=== PATIENT | female | born 1990 | race Caucasian/White ===

== ENCOUNTER 2016-06-23 19:18 | Emergency (ER) | payer OTHER ==
--- NOTE | 2016-06-23 19:39 | PDOC ---
Back Pain / Injury HPI - General Chief Complaint: Neck / Back Complaint Stated Complaint: PAIN LEFT BACK AFTER MOVING FURNITURE Date Seen by Provider: 06/23/16 Time Seen by Provider: 19:34 - History of Present Illness Initial Comments: Patient is a very nice 25-year-old woman who was lifting a heavy object when she felt a bit of a pop in her left lateral ribs and back. She had some instant pain in that area and was concerned that she may have broken some ribs so she came to the emergency department for evaluation. She has no shortness of breath no nausea no vomiting no neurologic deficits that she can speak of. She's not had significant rib injuries in the past she's not had significant back injury in the past. She denies any other complaints. Certainly no saddle anesthesia or incontinence or anything of that nature. - Patient Home Medications Home Medications: Home Medications Cyclobenzaprine HCl [Flexeril] 10 mg PO TID PRN #30 tab 06/23/16 Ibuprofen 600 mg PO TID PRN #30 tab 06/23/16 - Patient Allergies Allergies/Adverse Reactions: Allergies Allergy/AdvReac Type Severity Reaction Status Date / Time No Known Drug Allergies Allergy NOT Verified 06/23/16 19:24 APPLICABLE SEASONAL Allergy Mild NOT Uncoded 06/23/16 19:24 APPLICABLE Past Medical History - heen HEENT History: Other (please comment) Additional HEENT History: tonsils Cardiovascular History: Denies History Respiratory History: Pneumonia Gastrointestinal History: Other (please comment) Additional Gastrointestinal History: Appy Genitourinary History: Denies History Endocrine History: Denies History Musculoskeletal History: Denies History Prosthesis or Implant: No Neurological History: Denies History Blood Disorders: Denies History Psychiatric History: Denies History History of Sexually Transmitted Diseases: No Cancer History: Denies History In Past Year Been Physically Harmed or Verbally Threatened: No History of MDRO: No Other Type of MDRO: UNKNOWN History of Other Communicable Diseases: No Tobacco Use: Current Every Day Smoker Alcohol Use: None Substance Use Type: None Previous Surgical History: Yes Type / Date of Surgery: appy. TONSILS Anesthesia Reactions: No Malignant Hyperthermia: No Significant Family History: No pertinent family hx Past Medical History Reviewed: Reviewed - No Changes ROS - Limitations ROS Limitations: No Limitations Constitution: REPORTS: Denies Symptoms Cardiovascular: REPORTS: Denies Cardiac Symptoms Neurological: REPORTS: Denies Neuro Symptoms Back Physical Assessment - General Appearance General Appearance: REPORTS: Alert, Cooperative, No Acute Distress - HEENT HEENT: POSITIVE: Head Inspection Nml, Eyes Inspection Nml - Neck Neck: POSITIVE: Non Tender, Painless ROM - Respiratory / CVS Respiratory / CVS: POSITIVE: Chest Non Tender, Breath Sounds Normal - Abdomen Abdomen: Soft: (All Quadrants), Normal Bowel Sounds: (All Quadrants), Denies Tenderness: (All Quadrants) - Back Back: REPORTS: Other (She has tenderness with palpation in the lower ribs on the left side of her rib cage and into the middle of her back. No step-off lesions.) - Extremities Musculoskeletal: REPORTS: Other (Bilateral lower extremities are benign. Intact strength sensation and no weakness.) Back Progress - Patient's Progress MDM / ED Course: I discussed with the patient that she has likely had rib strain or costochondral junction dislocation or potential even just a back strain. At any rate given that she has no other symptoms accompanying this except for some back and rib pain I don't feel that x-rays or labs or anything of that nature will be particularly beneficial. Return to go ahead and give her some ibuprofen and some Flexeril have her rest for the next few days not do any bending stooping lifting or other substantial activities and see if she improves. If she improves readily she can get back to normal as soon as possible. If she does not improve at all however I've encouraged her to follow- up with her primary care provider or orthopedics towards the end of this week. Certainly if she starts to have worsening symptoms she knows to come back. Patient Care Time - Estimated PCT Patient Care Time (In Minutes): 20 Vital Signs - VS Reviewed Vital Signs Reviewed: Yes Discharge Clinical Impression: Thoracic back pain, Rib pain on left side Discharge Disposition: Discharged to Home Condition: Stable Prescriptions / Orders: Cyclobenzaprine HCl [Flexeril] 10 mg PO TID PRN #30 tab PRN Reason: Spasms Ibuprofen 600 mg PO TID PRN #30 tab PRN Reason: Pain Patient Instructions Given at Discharge: Rib Fracture (ED), Back Pain (ED) Additional Instructions: Follow-up with primary care provider in the next few days. Follow-up if things worsen or if he starts to develop new or different concerning symptoms. Follow Up With: NONE,NONE [Primary Care Provider] -
[2016-06-23 19:52] VITALS: RESP 18; TEMP 97
== END 2016-06-23 19:43 | disposition home or self-care (01) ==
LOC: ER 19:18
DX: M54.89 Other dorsalgia (principal); R07.81 Pleurodynia; X50.0XXA Overexertion from strenuous movement or load, initial encounter
CPT/HCPCS: 99282

== ENCOUNTER 2016-07-01 04:10 | Emergency (ER) | payer OTHER ==
[2016-07-01] MEDS ORDERED: KETOROLAC 30 MG/1 ML VIAL IVP ONE (04:32)
[2016-07-01] MEDS ORDERED: DEXAMETHASONE PF 10 MG/1 ML VIAL IV ONE (04:32)
[2016-07-01] MEDS ORDERED: Sodium Chloride 0.9% 1,000 ML PRIMARY IV ONE (04:32)
[2016-07-01] MEDS ORDERED: Prochlorperazine Edisylate Inj 10mg/2ml vial IVP ONE (04:32)
[2016-07-01] MEDS ORDERED: diphenhydrAMINE 50 MG/1 ML VIAL IVP ONE (04:32)
[2016-07-01] MEDS ORDERED: Magnesium Sulfate 2gm (Premix) 2 GM in Premix 1 BAG IV ONE (04:32)
--- NOTE | 2016-07-01 04:40 | PDOC ---
Gen Adult / Medical Screen HPI - General Chief Complaint: General Medical Stated Complaint: Nausea/Vomitting x 3 weeks Date Seen by Provider: 07/01/16 Time Seen by Provider: 04:35 Source: POSITIVE: Patient Exam Limitations: POSITIVE: No limitations Nurse's Notes Reviewed & Considered: Yes - Indicators Temperature Between 95 and 101 Degrees: Yes Respirations Between 12 and 20: Yes Blood Pressure Between 100-165 (sys) and 60-100 (ortiz): Yes Pulse Range Between 60-105 (100 for age > 60 years): Yes Severe Pain (Greater than 5/10 Reported): Yes (headache) Chest or Abdominal Pain: No Inability to Walk: No Pt Reports Active High Risk Cond. (TB/Hepatitis/HIV/Chemo): No Abnormal Mental Status: No - History of Present Illness Initial Comments: Patient comes in today with a chief complaint of headache, nausea, vomiting, and not feeling well for approximately 3 weeks. Patient does have a history of migraine headaches. She states this headache is not the worst that she's had. Headache begins in her forehead, radiates over the top of her head, and down into her neck. She denies any shortness of breath, cough, or chest pain. No rashes. Body Location Affected: REPORTS: Head, Abdomen Timing: REPORTS: Constant, Getting Worse Duration: >1 week (Approximately 3 weeks) Recent Care Received: REPORTS: Recently Seen, Treated by MD (Recently seen in the emergency department 3 weeks ago for back pain.) - Patient Home Medications Home Medications: Home Medications Cyclobenzaprine HCl [Flexeril] 10 mg PO TID PRN #30 tab 06/23/16 Ibuprofen 600 mg PO TID PRN #30 tab 06/23/16 - Patient Allergies Allergies/Adverse Reactions: Allergies Allergy/AdvReac Type Severity Reaction Status Date / Time adhesive tape Allergy RASH Verified 07/01/16 04:19 No Known Drug Allergies Allergy NOT Verified 07/01/16 04:19 APPLICABLE SEASONAL Allergy Mild NOT Uncoded 07/01/16 04:19 APPLICABLE Past Medical History - heen HEENT History: Other (please comment) Additional HEENT History: tonsils Cardiovascular History: Denies History Respiratory History: Pneumonia Gastrointestinal History: Other (please comment) Additional Gastrointestinal History: Appy Genitourinary History: Denies History Endocrine History: Denies History Musculoskeletal History: Denies History Prosthesis or Implant: No Neurological History: Denies History Blood Disorders: Denies History Psychiatric History: Denies History History of Sexually Transmitted Diseases: No Cancer History: Denies History History of MDRO: No Other Type of MDRO: UNKNOWN History of Other Communicable Diseases: No Alcohol Use: None Substance Use Type: None Previous Surgical History: Yes Type / Date of Surgery: appy. TONSILS Anesthesia Reactions: No Malignant Hyperthermia: No Significant Family History: No pertinent family hx ROS - Limitations ROS Limitations: No Limitations Constitution: REPORTS: Denies Symptoms Cardiovascular: REPORTS: Denies Cardiac Symptoms Respiratory: REPORTS: Denies Resp Symptoms Neurological: REPORTS: Headache Gastrointestinal: REPORTS: Nausea, Vomitting Endocrine: REPORTS: Denies Symptoms Musculoskeletal: REPORTS: Neck Pain Genitourinary: REPORTS: Denies Symptoms Eyes: REPORTS: Denies Symptoms ENT: REPORTS: Denies Symptoms Skin: REPORTS: Denies Skin Symptoms Lympathic: REPORTS: Denies Lympathic Symptoms Immunologic: POSITIVE: Denies Symptoms Psychiatric: POSITIVE: Denies Psych Symptoms Gen Adult/Medical Screen Exam - General Appearance General Appearance: POSITIVE: Alert, Cooperative, No Acute Distress, No Evidence of Trauma - HEENT HEENT: POSITIVE: Head Inspection Nml, Eyes Inspection Nml, Ears Inspection Nml, Nose Inspection Nml, PERRL, EOMI - Pupils Pupil Size: 4 mm: Bilateral - Neck Neck: POSITIVE: Normal Inspection, Thyroid Normal - Respiratory Respiratory: POSITIVE: No Respiratory Distress, Breath Sounds Normal, Chest Non- Tender - Cardiovascular Cardiovascular: POSITIVE: Regular Rate & Rhythm, No Murmur, No Gallop, PMI Normal - Abdomen Abdomen: Soft: (All Quadrants), Normal Bowel Sounds: (All Quadrants), Denies Tenderness: (All Quadrants) - Neurological / Psychological Mental Status: POSITIVE: Mood Normal, Affect Normal Orientation: POSITIVE: Oriented x 3 - Skin Skin: POSITIVE: Normal Color, Warm, Dry, No Rash - Extremities Extremity: Non-Tender: (All Extremities), Normal ROM: (All Extremities), Normal Inspection: (All Extremities), Pelvis Stable: (All Extremities) Procedures - Laceration/Wound Repair Did patient have a laceration repair: No Gen Adlt/Medical Scrn Progress - Results Reviewed by me Lab Results Reviewed: Yes Lab Results:: Laboratory Results 07/01/16 Range/Units 04:15 WBC 16.29 H (4.8-10.8) 10^3/uL RBC 5.30 (4.20-5.40) 10^6/uL Hgb 15.3 (12.0-16.0) g/dL Hct 45.1 (37.0-47.0) % MCV 85.1 (81-99) FL MCH 28.9 (27-31) PG MCHC 33.9 (33-37) g/dL RDW Std Deviation 40.9 (39-50) fL RDW Coeff of [place] 13.3 (11.5-14.5) % Plt Count 395 H (140-350) 10*3/uL MPV 9.6 (7.4-12.2) FL Immature Gran % (Auto) 0.2 (0-5) % Neut % (Auto) 68.8 (50-80) % Lymph % (Auto) 22.2 (10-50) % [place] % (Auto) 5.0 (5-15) % Eos % (Auto) 3.6 (0-8) % Baso % (Auto) 0.2 (0-1) % Immature Gran # (Auto) 0.04 10*3/UL Neut # (Auto) 11.20 10*3/UL Lymph # (Auto) 3.61 10*3/uL [place] # (Auto) 0.81 H (0.3-0.8) 10*3/UL Eos # (Auto) 0.59 10*3/UL Baso # (Auto) 0.04 10*3/UL WBC Morphology Comment Normal morphology (NORM) Plt Morphology Comment Normal morphology (NORM) RBC Morph Comment Normal morphology (NORM) Sodium 141 (135-145) meq/L Potassium 3.9 (3.8-5.2) meq/L Chloride 103 (98-112) meq/L Carbon Dioxide 25 (23-33) meq/L Anion Gap 13 (5-20) BUN 7 (7-22) mg/dL Creatinine 0.9 (0.50-1.20) mg/dL Estimated GFR > 60 (>60 ml/min/1.73m(2)) BUN/Creatinine Ratio 7.77 (6-20) Glucose 97 (78-110) mg/dL Calculated Osmolality 289.0 (267-292) mOsm/kg Calcium 9.6 (8.7-10.7) mg/dL Magnesium 2.2 (1.6-2.4) mg/dL Total Bilirubin 0.5 (0.3-1.2) mg/dL AST 33 (8-39) IU/L ALT 66 H (9-52) IU/L Alkaline Phosphatase 56 (38-126) IU/L Total Protein 8.1 H (6.1-8.0) g/dL Albumin 4.6 (3.5-4.8) g/dL Globulin 3.5 (2.50-4.10) g/dL Albumin/Globulin Ratio 1.30 (1.3-2.0) mg/g Serum HCG, Qual Negative Ur Collection Type Clean catch urine Urine Color Yellow Urine Clarity Clear (CLEAR) Urine pH 5.5 (5.0-8.5) Ur Specific [place] 1.020 (1.005-1.030) Urine Protein Negative (NEG) mg/dl Urine Glucose (UA) Negative (NEG) mg/dL Urine Ketones Trace (NEG) Urine Occult Blood Negative (NEG) Urine Nitrate Negative (NEG) Urine Bilirubin Negative (NEG) Urine Urobilinogen 0.2 (0.2) EU/dL Ur Leukocyte Esterase Negative (NEG) Ur Culture Indicated? Culture not set - Patient's Progress Pain Medication Addressed: POSITIVE: Yes Re-Examine Time: 05:30 Status: POSITIVE: Improved MDM / ED Course: Patient was examined, an IV started, blood drawn and sent to the lab for studies. Patient received a liter of normal saline, Toradol, dexamethasone, Compazine, Benadryl, and magnesium. Her headache resolved. Her nausea and vomiting or significantly better. She had no further episodes of vomiting here in the emergency department. Findings: CBC shows a white count elevated over 16. Comprehensive metabolic panel is unremarkable. Urinalysis shows ketones present. Assessment: Nausea and vomiting with headache, resolved. Plan: Discharge home clear liquids today, hydrate well. She is to use her Zofran that has already been prescribed as needed. - Consult Counseled: POSITIVE: Patient, RE: Lab Results, RE: DX, RE: Need for F/U Patient Care Time - Estimated PCT Patient Care Time (In Minutes): 20 Vital Signs - Recent Vital Signs Vital Signs: Vital Signs (Last 8 hours) Temp Pulse Resp BP Pulse Ox 07/01/16 04:10 97.4 F 86 18 129/85 95 - VS Reviewed Vital Signs Reviewed: Yes Discharge Clinical Impression: Dehydration, Nausea and vomiting, Supraorbital headache Discharge Disposition: Discharged to Home Condition: Stable Patient Instructions Given at Discharge: Dehydration (ED), Acute Headache (ED)
[2016-07-01 04:43] VITALS: RESP 18; TEMP 97.4
[2016-07-01 04:45] LABS: BASOPHILS # (AUTO) 0.04 10*3/UL; BASOPHILS % (AUTO) 0.2 % (0-1); BILIRUBIN,URINE NEGATIVE (NEG); COLOR,URINE YELLOW; EOSINOPHILS # (AUTO) 0.59 10*3/UL; EOSINOPHILS % (AUTO) 3.6 % (0-8); GLUCOSE, URINE (UA) NEGATIVE (NEG); HEMATOCRIT 45.1 % (37.0-47.0); HEMOGLOBIN 15.3 g/dL (12.0-16.0); LYMPHOCYTES # (AUTO) 3.61 10*3/uL; MEAN CORPUSCULAR HEMOGLOBIN 28.9 PG (27-31); MEAN CORPUSCULAR HGB CONC 33.9 g/dL (33-37); MEAN CORPUSCULAR VOLUME 85.1 FL (81-99); MEAN PLATELET VOLUME 9.6 FL (7.4-12.2); MONOCYTES # (AUTO) 0.81 10*3/UL (0.3-0.8); NEUTROPHILS % (AUTO) 68.8 % (50-80); NITRATE,URINE NEGATIVE (NEG); OCCULT BLOOD,URINE NEGATIVE (NEG); PH,URINE 5.5 (5.0-8.5); PROTEIN,URINE NEGATIVE (NEG); UROBILINOGEN,URINE 0.2 EU/dL (0.2)
[2016-07-01 04:47] LABS: PLATELET MORPHOLOGY COMMENT NORMAL MORPHOLOGY (NORM); RBC MORPHOLOGY COMMENT NORMAL MORPHOLOGY (NORM); WBC MORPHOLOGY COMMENT NORMAL MORPHOLOGY (NORM)
[2016-07-01 04:48] LABS: CLARITY,URINE CLEAR (CLEAR)
[2016-07-01 04:49] LABS: URINE SAMPLE TYPE CLEAN CATCH URINE
[2016-07-01 04:50] LABS: BLOOD UREA NITROGEN 7 mg/dL (7-22); BUN/CREATININE RATIO 7.77 (6-20); CALCIUM 9.6 mg/dL (8.7-10.7); EST GLOMERULAR FILTRATION > 60 (>60 ml/min/1.73m(2)); MAGNESIUM 2.2 mg/dL (1.6-2.4); SERUM ALBUMIN 4.6 g/dL (3.5-4.8)
== END 2016-07-01 06:19 | disposition home or self-care (01) ==
LOC: ER 04:10
DX: G44.89 Other headache syndrome (principal); E86.0 Dehydration; R11.2 Nausea with vomiting, unspecified
CPT/HCPCS: 80053; 81003; 83735; 84703; 85025; 96361; 96365; 96375; 99282; 99283; J1200; J1885; J0780; J1100; J3475; J7030